=== PATIENT | female | born 1975 | race Caucasian/White ===

== ENCOUNTER → 2016-06-22 | Outpatient (CLI) | payer OTHER | LOC: BRMIMAGING 08:34 | DX: Z12.31 Encounter for screening mammogram for malignant neoplasm of breast (principal) | CPT/HCPCS: G0202 ==

== ENCOUNTER → 2016-07-09 | Outpatient (CLI) | payer OTHER | LOC: BRMIMAGING 08:49 | DX: Z03.89 Encounter for observation for other suspected diseases and conditions ruled out (principal) | CPT/HCPCS: G0206 ==

== ENCOUNTER → 2017-06-23 | Outpatient (CLI) | payer OTHER | LOC: BRMIMAGING 11:50 | PROVIDERS: ATTEND Obstetrics & Gynecology | DX: Z12.31 Encounter for screening mammogram for malignant neoplasm of breast (principal) ==

== ENCOUNTER 2018-07-25 11:59 | Day surgery (SDC) | payer OTHER ==
[2018-07-25] MEDS ORDERED: LR 1,000 ML IV ONE (12:19)
[2018-07-25] MEDS ORDERED: PROPOFOL 200 MG/20 ML VIAL ONE ×2 (13:47→13:58)
[2018-07-25] MEDS ORDERED: fentaNYL 100 MCG/2 ML INJ ONE (13:47)
[2018-07-25] MEDS ORDERED: INDOMETHACIN 50 MG SUPP PR PRN (13:51)
--- NOTE | 2018-07-25 13:51 | PDGENHP ---
History & Physical Chief Complaint: gastric polyp History of Present Illness: 43 year presents for surveillance of a complex gastric polyp Pertinent Past, Social, Family History: PMHx: asthma, SVT Relevant Physical Exam: HEENT: anicteric. CV: RRR +s1s2. Lungs: CTAB. Abd: soft, nt, + bs Cardiorespiratory Assessment: ASA 2
--- NOTE | 2018-07-25 13:51 | PDANEPAE ---
ANE History of Present Illness esophageal polyp s/f EGD ANE Past Medical History - Cardiovascular History Hx Hypertension: No Hx Arrhythmias: No Hx Chest Pain: No Cardiovascular History Comment: hx SVT,[place] [facility]. no SVT for a very long time - Pulmonary History Hx COPD: No Hx Asthma/Reactive Airway Disease: Yes Hx Recent Upper Respiratory Infection: No Hx Oxygen in Use at Home: No Hx Sleep Apnea: No Sleep Apnea Screening Result - Last Documented: Negative Pulmonary History Comment: severe allergies. allergies trigger asthma - Neurologic History Hx Cerebrovascular Accident: No Hx Seizures: No Hx Dementia: No - Endocrine History Hx Diabetes: No - Renal History Hx Renal Disorders: No - Liver History Hx Hepatic Disorders: No - Neurological & Psychiatric Hx Hx Neurological and Psychiatric Disorders: No - Cancer History Hx Cancer: No - Congenital Disorder History Hx Congenital Disorders: No - GI History Hx Gastrointestinal Disorders: Yes Gastrointestinal History Comment: severe acid reflux removed very large polyp - Other Health History Other Health History: voice/hoarseness r/t gerd - Chronic Pain History Chronic Pain: No - Surgical History Prior Surgeries: EGD 2017 ANE Review of Systems Review of Systems: - Exercise capacity METS (RN): 6 METS ANE Patient History - Allergies Allergies/Adverse Reactions: iodine [Iodine] Allergy (Severe, Verified 07/19/18 14:42) Anaphylaxis Penicillins Allergy (Severe, Verified 07/19/18 14:42) Shellfish *RETIRED-12/14/11 [Shellfish] Allergy (Severe, Verified 07/19/18 14:42 ) Rash latex [Latex] Allergy (Intermediate, Verified 07/19/18 14:42) Rash lorazepam [From Ativan] Allergy (Intermediate, Verified 07/19/18 14:42) AGITATION promethazine HCl [From Phenergan] Allergy (Intermediate, Verified 07/19/18 14:42 ) AGITATION aspirin [Aspirin] Allergy (Unknown, Verified 07/19/18 14:42) - Home Medications Home medications: home medication list seen and reviewed Home Medications: ESOMEPRAZOLE MAG TRIHYDRATE [NEXIUM] 04/18/12 [Last Taken Unknown] Proair Hfa 07/19/18 [Last Taken Unknown] - NPO status NPO Status: no food or drink >8 hours NPO Since - Liquids (Date): 07/24/18 NPO Since - Liquids (Time): 23:55 NPO Since - Solids (Date): 07/24/18 NPO Since - Solids (Time): 23:55 - Anes Hx Anes Hx: no prior problems - Smoking Hx Smoking Status: Former smoker - Alcohol Use Alcohol Use: None - Family Anes Hx Family Anes Hx: none Family Hx Anesthesia Complications: grandmother respiratory issues ANE Labs/Vital Signs - Vital Signs Blood Pressure: 116/81 Heart Rate: 86 Respiratory Rate: 19 O2 Sat (%): 99 Height: 165.1 cm Weight: 70.307 kg ANE Physical Exam - Airway Neck exam: FROM Mallampati Score: Class 1 Mouth exam: normal dental/mouth exam - Pulmonary Pulmonary: no respiratory distress - Cardiovascular Cardiovascular: regular rate and rhythym - ASA Status ASA Status: II ANE Anesthesia Plan Anesthesia Plan: GA with mask Total IV Anesthesia: Yes
[2018-07-25] MEDS ORDERED: NS 500 ML IV SCH (14:00)
[2018-07-25] MEDS ORDERED: ALBUTEROL 3 ML DEYVIAL IH PRN (14:09)
[2018-07-25] MEDS ORDERED: NALOXONE HCL 0.4 MG/ML INJ IVP PRN (14:09)
[2018-07-25] MEDS ORDERED: ONDANSETRON 4 MG/2 ML VIAL IVP PRN (14:09)
[2018-07-25] MEDS ORDERED: MEPERIDINE 25 MG/0.5 ML AMP IVP PRN (14:09)
[2018-07-25] MEDS ORDERED: DEXAMETHASONE 4 MG/ML VIAL IVP PRN (14:09)
[2018-07-25] MEDS ORDERED: LR 500 ML IV PRN (14:09)
[2018-07-25] MEDS ORDERED: oxyCODONE IR 5 MG TAB PO PRN (14:09)
[2018-07-25] MEDS ORDERED: METOCLOPRAMIDE 10 MG/2 ML VIAL IVP PRN (14:09)
[2018-07-25] MEDS ORDERED: fentaNYL 100 MCG/2 ML INJ IVP PRN (14:09)
[2018-07-25] MEDS ORDERED: PHENYLEPHRINE HCL 100 MCG/ML SYR IVP PRN (14:09)
--- NOTE | 2018-07-25 14:24 | GIREPORT ---
[facility] Surgical Services - Endoscopy Department Patient Name: Genevieve Roman Procedure Date: 07/25/2018 1:39 PM Patient Type: Outpatient Attending MD/ ER Physician: Kris Villalobos MD Procedure: Upper GI endoscopy Indications: Heartburn, Follow-up of gastric polyps Patient Profile: 43 year old female presents for follow up on gastric polyps/heartburn. Providers: Kris Villalobos MD Medicines: Monitored Anesthesia Care Complications: No immediate complications. Estimated blood loss: Minimal. Description of Procedure: After obtaining informed consent, the endoscope was passed under direct vision. Throughout the procedure, the patient's blood pressure, pulse, and oxygen saturations were monitored continuously. The Endoscope was intro duced through the mouth, and advanced to the second part of duodenum. The [facility] er GI endoscopy was accomplished without difficulty. The patient tolerated th e procedure well. Findings: The examined esophagus was normal. A hiatal hernia was present. Multiple medium sessile polyps were found on the greater curvature of t he stomach. The polyp was removed with a hot snare. Resection and retrieva l were complete. Patchy mildly erythematous mucosa was found in the gastric body and in the gastric antrum. Biopsies were taken with a cold forceps for histology. The examined duodenum was normal. Estimated Blood Loss: Estimated blood loss was minimal. Post Op Diagnosis: - Normal esophagus. - Hiatal hernia. - Multiple gastric polyps. Resected and retrieved. - Erythematous mucosa in the gastric body and antrum. Biopsied. - Normal examined duodenum. Recommendation: - Discharge patient to home (with escort). - The signs and symptoms of potential delayed complications were discus sed with the patient. - Patient has a contact number available for emergencies. - Return to normal activities tomorrow. - Resume previous diet. - Continue present medications. - Await pathology results. - Thank you for allowing me to participate in the care of your patient. Attending Participation: I personally performed the entire procedure. Kris Villalobos MD Kris Villalobos MD 07/25/2018 2:23:52 PM This report has been signed electronicallyKris Villalobos MD Number of Addenda: 0 Note Initiated On: 07/25/2018 1:39 PM [email or web address]
[2018-07-25 15:46] VITALS: BP 120/82
== END 2018-07-25 16:45 | disposition home or self-care (01) ==
LOC: FSGY 11:59
PROVIDERS: ATTEND Internal Medicine Gastroenterology
PROC: 0DB68ZX Excision of Stomach, Via Natural or Artificial Opening Endoscopic, Diagnostic (ICD-10-PCS; principal; 2018-07-25 13:30)
DX: K31.7 Polyp of stomach and duodenum (principal); K21.9 Gastro-esophageal reflux disease without esophagitis; K44.9 Diaphragmatic hernia without obstruction or gangrene; Z87.891 Personal history of nicotine dependence
CPT/HCPCS: J2704; J3010

== ENCOUNTER → 2018-08-02 | Outpatient (CLI) | payer OTHER | LOC: FIMAGING 12:37 | PROVIDERS: ATTEND Obstetrics & Gynecology | DX: Z12.31 Encounter for screening mammogram for malignant neoplasm of breast (principal) ==